=== PATIENT | female | born 1990 | race Caucasian/White ===

== ENCOUNTER 2019-05-01 15:38 | Emergency (ER) | payer OTHER ==
[2019-05-01 17:00] LABS: ADD UMIC YES; UR ASCORBIC ACID 40 mg/dL (NEGATIVE); UR BACTERIA FEW /HPF (NONE SEEN); UR BILIRUBIN (Dip) NEGATIVE (NEGATIVE); UR BLOOD (Dip) 2+ mg/dL (NEGATIVE); UR CLARITY SLIGHTLY CLOUDY (CLEAR); UR COLOR RED (YELLOW); UR GLUCOSE (Dip) NEGATIVE (NEGATIVE); UR KETONES (Dip) NEGATIVE (NEGATIVE); UR LEUKOCYTE ESTERASE (Dip) NEGATIVE Leu/ul (NEGATIVE); UR NITRITE (Dip) POSITIVE (NEGATIVE); UR RBC 16 /HPF (0-5); UR SPECIFIC GRAVITY (Dip) 1.015 (1.003-1.030); UR SQUAMOUS EPITHELIAL CELL FEW /HPF (FEW); UR TOTAL PROTEIN (Dip) 1+ mg/dl (NEGATIVE); UR UROBILINOGEN (Dip) 2+ mg/dL (NEGATIVE); UR WBC 84 /HPF (0-5)
[2019-05-01] MEDS: ACETAMINOPHEN 325 MG TAB PO (17:03)
[2019-05-01] MEDS: CEPHALEXIN 500 MG CAP PO (17:03)
== END 2019-05-01 17:19 | disposition home or self-care (01) ==
LOC: FTE 17:19
DX: R30.0 Dysuria (principal)
CPT/HCPCS: 81001; 84703; 99283